=== PATIENT | female | born 1950 | race African-American/Black ===

== ENCOUNTER 2016-05-18 10:34 | Emergency (ER) | payer OTHER ==
[~2016-05-18] VITALS: Ht 167.6 cm; Wt 80.0 kg
[~2016-05-18 10:34] MED LIST: AMIT150T PO; CYCL-36 PO; LEVO.075 PO; METO10TA PO; OXYC5 PO; PREM0.622 PO; PROT40TA PO
[2016-05-18 10:37] VITALS: BP 134/71; PULSE 116; RESP 15; TEMP 98.2; O2SAT 99
[2016-05-18] MEDS ORDERED: SODIUM CHLOR 0.9% 1000 ML INJ 1,000 ML IV SCH (10:43)
[2016-05-18] MEDS ORDERED: SODIUM CHLORIDE 0.9% FLUSH 5 ML FLUSH IVF PRN (10:45)
[2016-05-18] MEDS ORDERED: KETOROLAC TROMETHAMINE 30 MG/ML (IVP) VIAL IV PUSH ONE (10:45)
[2016-05-18] MEDS ORDERED: METOCLOPRAMIDE HCL 10 MG/2 ML VIAL IV PUSH ONE (10:45)
[2016-05-18 10:47] VITALS: O2SAT 98
--- NOTE | 2016-05-18 10:47 | PD ---
HPI Chief Complaint: Flank/Kidney Pain Time Seen by Provider: 10:43 Travel History International Travel<30 days: No Contact w/Intl Traveler<30days: No Traveled to known affect area: No History of Present Illness HPI 65-year-old female with history of migraine headaches here for evaluation of bilateral flank pain, headache, and chills. Symptoms started yesterday. Headache is retro-orbital and feels like the beginning of a migraine, is moderate. Bilateral flank pain is sharp/cramping. The patient has noted that her Urine is darker than usual. She has had subjective fevers. No nausea or vomiting. No diarrhea. PFSH Past Medical History Depression: Yes Diabetes: Yes (BORDERLINE) Diminished Hearing: No Diverticulitis: Yes GERD: Yes Hypertension: Yes Migraines: Yes Thyroid Disease: Yes (HYPOTHYROIDISM) Ulcer: Yes PNEUMOCCOCAL Vaccine (Year): 2 ?: Not Menopausal: Yes Past Surgical History Cholecystectomy: Yes (7 YRS AGO) Hysterectomy: Yes Tonsillectomy: Yes ( CHILD) Other Surgery: No Social History Alcohol Use: No Tobacco Use: No (QUIT 1984) Substance Use: No Allergies-Medications (Allergen,Severity, Reaction): Coded Allergies: Codeine (Verified Allergy, Severe, ITCHING AND BURNING N/V, 05/18/16) Morphine (Verified Allergy, Severe, NAUSEA/VOMITING, 05/18/16) Lisinopril (Verified Adverse Reaction, Severe, Cough, 05/18/16) Reported Meds & Prescriptions Reported Meds & Active Scripts Active Reported Oxycodone-Acetaminophen 10-325 mg Tab 1 Tab PO Q8HR Triamcinolone Topical (Triamcinolone Acetonide) 0.1% Cream 1 Applic TOPICAL BID Pantoprazole (Pantoprazole Sodium) 40 Mg Tab 40 Mg PO DAILY Losartan (Losartan Potassium) 50 Mg Tab 50 Mg PO DAILY Levothyroxine (Levothyroxine Sodium) 88 Mcg Tab 88 Mcg PO DAILY Isopto Tears Opth Drops (Hypromellose) 0.5% Drops 1 Drop EACH EYE Q6H PRN Premarin (Estrogens Conjugated) 0.625 Mg Tab 0.625 Mg PO DAILY Restasis Opth Drops (Cyclosporine Opth Drops) 0.05% Emul 1 Drop EACH EYE BID Amitriptyline (Amitriptyline HCl) 150 Mg Tab 150 Mg PO HS Review of Systems Except as stated in HPI: all other systems reviewed are Neg Physical Exam Narrative GENERAL: Well-developed, well-nourished, awake, alert, no acute distress. SKIN: Warm and dry. No rash. HEAD: Atraumatic. Normocephalic. EYES: Pupils equal and round. No scleral icterus. No injection or drainage. ENT: Mucous membranes pink and moist. NECK: Trachea midline. No JVD. No nuchal rigidity. CARDIOVASCULAR: Regular rate and rhythm. RESPIRATORY: No accessory muscle use. Clear to auscultation. Breath sounds equal bilaterally. GASTROINTESTINAL: Abdomen soft, non-tender, nondistended. MUSCULOSKELETAL: No obvious deformities. No clubbing. No cyanosis. No edema. Bilateral CVA tenderness. No midline vertebral step-off or tenderness. NEUROLOGICAL: Awake and alert. No obvious cranial nerve deficits. Motor grossly within normal limits. Normal speech. PSYCHIATRIC: Appropriate mood and affect; insight and judgment normal. Data Data Last Documented VS Vital Signs Date Time Temp Pulse Resp B/P Pulse Ox O2 Delivery O2 Flow Rate FiO2 05/18/16 11:04 105 16 135/67 100 05/18/16 10:47 Room Air 05/18/16 10:37 98.2 Orders Complete Blood Count With Diff (05/18/16 10:43) Comprehensive Metabolic Panel (05/18/16 10:43) Prothrombin Time / Inr (Pt) (05/18/16 10:43) Act Partial Throm Time (Ptt) (05/18/16 10:43) Urinalysis - C+S If Indicated (05/18/16 10:43) Ct Abd/Pel W/O Iv Contrast (05/18/16 10:43) Iv Access Insert/Monitor (05/18/16 10:43) Ecg Monitoring (05/18/16 10:43) Oximetry (05/18/16 10:43) Sodium Chlor 0.9% 1000 Ml Inj (Ns 1000 M (05/18/16 10:43) Sodium Chloride 0.9% Flush (Ns Flush) (05/18/16 10:45) Metoclopramide Inj (Reglan Inj) (05/18/16 10:45) Ketorolac Inj (Toradol Inj) (05/18/16 10:45) Labs Laboratory Tests Test 05/18/16 05/18/16 10:50 10:54 White Blood Count 9.8 TH/MM3 Red Blood Count 4.33 MIL/MM3 Hemoglobin 13.1 GM/DL Hematocrit 38.1 % Mean Corpuscular Volume 88.1 FL Mean Corpuscular Hemoglobin 30.3 PG Mean Corpuscular Hemoglobin 34.4 % Concent Red Cell Distribution Width 13.1 % Platelet Count 288 TH/MM3 Mean Platelet Volume 8.9 FL Neutrophils (%) (Auto) 74.0 % Lymphocytes (%) (Auto) 16.0 % Monocytes (%) (Auto) 9.0 % Eosinophils (%) (Auto) 0.2 % Basophils (%) (Auto) 0.8 % Neutrophils # (Auto) 7.2 TH/MM3 Lymphocytes # (Auto) 1.6 TH/MM3 Monocytes # (Auto) 0.9 TH/MM3 Eosinophils # (Auto) 0.0 TH/MM3 Basophils # (Auto) 0.1 TH/MM3 CBC Comment DIFF FINAL Differential Comment Prothrombin Time 11.1 SEC Prothromb Time International 1.0 RATIO Ratio Activated Partial 28.5 SEC Thromboplast Time Sodium Level 134 MEQ/L Potassium Level 3.6 MEQ/L Chloride Level 100 MEQ/L Carbon Dioxide Level 28.0 MEQ/L Anion Gap 6 MEQ/L Blood Urea Nitrogen 12 MG/DL Creatinine 1.24 MG/DL Estimat Glomerular Filtration 53 ML/MIN Rate Random Glucose 134 MG/DL Calcium Level 8.9 MG/DL Total Bilirubin 0.4 MG/DL Aspartate Amino Transf 20 U/L (AST/SGOT) Alanine Aminotransferase 25 U/L (ALT/SGPT) Alkaline Phosphatase 87 U/L Total Protein 8.2 GM/DL Albumin 3.8 GM/DL Urine Color YELLOW Urine Turbidity CLEAR Urine pH 7.0 Urine Specific [place] 1.012 Urine Protein NEG mg/dL Urine Glucose (UA) NEG mg/dL Urine Ketones NEG mg/dL Urine Occult Blood NEG Urine Nitrite NEG Urine Bilirubin NEG Urine Urobilinogen LESS THAN 2.0 MG/DL Urine Leukocyte Esterase NEG Urine RBC LESS THAN 1 /hpf Urine WBC 1 /hpf Urine Squamous Epithelial 2 /hpf Cells Urine Mucus FEW /lpf Microscopic Urinalysis Comment CULT NOT INDICATED MDM Medical Decision Making Medical Screen Exam Complete: Yes Emergency Medical Condition: Yes Medical Record Reviewed: Yes Differential Diagnosis Migraine headache, cluster headache, tension headache, SAH/meningitis/ encephalitis unlikely, UTI, pyelonephritis, nephrolithiasis Narrative Course Initial vital signs show heart rate 116, blood pressure 134/71, pulse ox 99% on room air, oral temp of 98.2F. Heart rate improved to 97 after a liter of IV fluids. CBC is unremarkable. CMP is remarkable for creatinine 1.4, GFR 53, which is slightly worse than her baseline, otherwise unremarkable. UA is unremarkable, no hematuria, not suggestive of UTI. CT abdomen pelvis: CONCLUSION: Several tiny pelvic calcifications bilaterally. It is unclear if these may represent small distal ureteral stones as they could also be intimal calcifications and adjacent iliac blood vessels. Otherwise no acute CT findings in the abdomen or pelvis. Patient was made aware of all findings. She was given IV Toradol and IV Reglan with improvement in headache and bilateral flank pain. The patient is still complaining of some bilateral flank pain. She has no red flags for low back pain. She feels well enough to be discharged home. Her headache has improved and feels like the beginning of a migraine. There is no nuchal rigidity. I do not believe she has meningitis, encephalitis, or a subarachnoid hemorrhage. I believe she is stable for discharge home with outpatient follow-up with her primary care physician this week. She takes oxycodone for chronic back pain. She was informed on when to return to the emergency department. She verbalizes understanding and agreement with plan. Diagnosis Primary Impression: Cephalgia Qualified Code: R51 - Acute nonintractable headache, unspecified headache type Additional Impression: Flank pain Referrals: Primary Care Physician 3 days Additional Instructions: Follow-up with your primary care physician this week. Stay hydrated with plenty of fluids. Return to the emergency department for worsening symptoms or any other concerns. Disposition: DISCHARGE HOME Condition: Stable Daniel Reyes MD May 18, 2016 10:46
[2016-05-18] MEDS ORDERED: LOSA50TA PO (10:56)
[2016-05-18] MEDS ORDERED: LEVO88TA2 PO (10:56)
[2016-05-18] MEDS ORDERED: ESTR.625 PO (10:56)
[2016-05-18] MEDS ORDERED: OXYC1TAB36 PO (10:56)
[2016-05-18] MEDS ORDERED: REST0.05 EACH EYE (10:56)
[2016-05-18] MEDS ORDERED: AMIT150T PO (10:56)
[2016-05-18] MEDS ORDERED: ISOP0.5S EACH EYE (10:56)
[2016-05-18] MEDS ORDERED: TRIA.1%T TOPICAL (10:56)
[2016-05-18] MEDS ORDERED: PANT40TA3 PO (10:56)
[2016-05-18 11:04] VITALS: BP 135/67; PULSE 105; RESP 16; O2SAT 100
[2016-05-18 11:07] LABS: AUTOMATED NEUTROPHIL # 7.2 TH/MM3 (1.8-7.7); BASOPHIL # 0.1 TH/MM3 (0-0.2); BASOPHIL % 0.8 % (0.0-2.0); EOSINOPHIL % 0.2 % (0.0-4.0); HEMATOCRIT 38.1 % (35.0-46.0); HEMO FLAGS DIFF FINAL; LYMPHOCYTE # 1.6 TH/MM3 (1.0-4.8); MEAN CELL VOLUME 88.1 FL (80.0-100.0); MEAN CORPUSCULAR HEMOGLOBIN 30.3 PG (27.0-34.0); MEAN CORPUSCULAR HGB CONC 34.4 % (32.0-36.0); PLATELET COUNT 288 TH/MM3 (150-450); RED BLOOD COUNT 4.33 MIL/MM3 (4.00-5.30); RED CELL DISTRIBUTION WIDTH 13.1 % (11.6-17.2); WHITE BLOOD COUNT 9.8 TH/MM3 (4.0-11.0)
[2016-05-18 11:12] LABS: APTT (PATIENT) 28.5 SEC (24.3-30.1); PROTHROMBIN TIME - PATIENT 11.1 SEC (9.8-11.6)
[2016-05-18 11:17] LABS: ALT (GPT) 25 U/L (10-53); ANION GAP 6 MEQ/L (5-15); AST (GOT) 20 U/L (15-37); BLOOD UREA NITROGEN 12 MG/DL (7-18); CHLORIDE 100 MEQ/L (98-107); GLOMERULAR FILTRATION RATE 53 ML/MIN (>89); POTASSIUM 3.6 MEQ/L (3.5-5.1); SODIUM (NA) 134 MEQ/L (136-145)
[2016-05-18 11:19] LABS: ALKALINE PHOSPHATASE 87 U/L (45-117); TOTAL BILIRUBIN ADULT 0.4 MG/DL (0.2-1.0)
[2016-05-18 11:25] LABS: BLOOD, URINE NEG (NEG); COMMENT (UR) CULT NOT INDICATED; CULTURE IF INDICATED CULT NOT INDICATED; GLUCOSE,URINE NEG (NEG); KETONE, URINE NEG (NEG); MUCUS URINE FEW /lpf (OCC); NITRITE,URINE NEG (NEG); SQUAMOUS EPITHELIAL CELL URINE 2 /hpf (0-5); URINE COLOR YELLOW (YELLW/STRAW)
--- NOTE | 2016-05-18 11:56 | RADRPT ---
EXAM DATE/TIME: 05/18/2016 11:20 [facility] COMPARISON: No previous studies available for comparison. INDICATIONS : Bilateral flank pain with chills. ORAL CONTRAST: No oral contrast ingested. RADIATION DOSE: 8.50 CTDIvol (mGy) MEDICAL HISTORY : Hypertension. Diabetes mellitus type 2. SURGICAL HISTORY : Cholecystectomy. Hysterectomy. ENCOUNTER: Initial ACUITY: 1 day PAIN SCALE: 6/10 LOCATION: Bilateral flank TECHNIQUE: Volumetric scanning of the abdomen and pelvis was performed. Using automated exposure control and ad justment of the mA and/or kV according to patient size, radiation dose was kept as low as reasonably achievable to obtain optimal diagnostic quality images. FINDINGS: LOWER LUNGS: Slight scarring in the left lung base. Small fat-containing posterior left diaphragmatic hernia. LIVER: Homogeneous density without lesion. There is no dilation of the biliary tree. Gallbladder surgically absent.. SPLEEN: Normal size without lesion. PANCREAS: Within normal limits. KIDNEYS: There is mild distention of the renal pelves bilaterally. The ureters are normal in caliber. There ar e tiny calcific densities noted over the pelvis bilaterally which are in close proximity to the dista l ureters, however they could also be vascular calcifications associated with the adjacent iliac vess els. None of these are larger than a couple of millimeters in size. ADRENAL GLANDS: Within normal limits. VASCULAR: There is no aortic aneurysm. BOWEL/MESENTERY: The stomach, small bowel, and colon demonstrate no acute abnormality. There is no free intraperitone al air or fluid. ABDOMINAL WALL: Within normal limits. RETROPERITONEUM: There is no lymphadenopathy. BLADDER: No wall thickening or mass. REPRODUCTIVE: Uterus surgically absent. No evidence of pelvic mass or free fluid. INGUINAL: There is no lymphadenopathy or hernia. MUSCULOSKELETAL: Within normal limits for patient age. CONCLUSION: Several tiny pelvic calcifications bilaterally. It is unclear if these may represent small distal ure teral stones as they could also be intimal calcifications and adjacent iliac blood vessels. Otherwise no acute CT findings in the abdomen or pelvis. Marcelino Hearn MD on May 18, 2016 at 11:46 Board Certified Radiologist. This report was verified electronically.
[2016-05-18 12:13] VITALS: PULSE 97
== END 2016-05-18 12:36 | disposition home or self-care (01) ==
LOC: NEPA 10:34
DX: R10.9 Unspecified abdominal pain (principal); R51 Headache; E11.9 Type 2 diabetes mellitus without complications; K21.9 Gastro-esophageal reflux disease without esophagitis; I10 Essential (primary) hypertension; E03.9 Hypothyroidism, unspecified; Z87.891 Personal history of nicotine dependence
CPT/HCPCS: 74176; 80053; 81001; 85025; 85610; 85730; 96361; 96374; 96375; 99284; J1885; J2765; J7030

== ENCOUNTER 2016-12-07 07:11 | Emergency (ER) | payer OTHER ==
[~2016-12-07] VITALS: Ht 167.6 cm; Wt 80.0 kg
[~2016-12-07 07:11] MED LIST changes: -CYCL-36 PO; +ESTR.625 PO; +ISOP0.5S EACH EYE; -LEVO.075 PO; +LEVO88TA2 PO; +LOSA50TA PO; -METO10TA PO; +OXYC1TAB36 PO; -OXYC5 PO; +PANT40TA3 PO; -PREM0.622 PO; -PROT40TA PO; +REST0.05 EACH EYE; +TRIA.1%T TOPICAL
[2016-12-07 07:15] VITALS: BP 185/80; PULSE 78; RESP 20; TEMP 97.7; O2SAT 99
[2016-12-07] MEDS ORDERED: SODIUM CHLOR 0.9% 1000 ML INJ 1,000 ML IV ONE (07:29)
[2016-12-07] MEDS ORDERED: ACETAMINOPHEN 325 MG TAB PO ONE (07:30)
[2016-12-07] MEDS ORDERED: SODIUM CHLORIDE 0.9% FLUSH 10 ML FLUSH IVF PRN (07:30)
[2016-12-07] MEDS ORDERED: PROCHLORPERAZINE INJ 10 MG/2 ML VIAL IVP ONE (07:30)
[2016-12-07] MEDS ORDERED: diphenhydrAMINE HCL 50 MG/ML VIAL IVP ONE (07:30)
[2016-12-07 07:34] VITALS: O2SAT 100
[2016-12-07 07:35] VITALS: BP 181/92; PULSE 74; RESP 19; O2SAT 100
[2016-12-07] MEDS ORDERED: PROM25TA10 PO (07:35)
--- NOTE | 2016-12-07 07:36 | PD ---
HPI Chief Complaint: Headache Time Seen by Provider: 07:29 Travel History International Travel<30 days: No Contact w/Intl Traveler<30days: No Traveled to known affect area: No History of Present Illness HPI the patient is a 66 years old S the ER complaining of frontal headache for about 2 hours. The headache started as she was getting up in the morning to take a shower. She reports a history of migraines however has not had one as severe for about 3 years. No neck stiffness or fever. Characteristics of today 's headache similar to prior although today's is more severe. Onset gradual. Timing constant. notes long travel to [place] and back couple with stress from [place] is likely contributory. PFSH Past Medical History Depression: Yes Diabetes: Yes Patient Takes Glucophage: No Diminished Hearing: No Diverticulitis: Yes GERD: Yes Hypertension: Yes Migraines: Yes Thyroid Disease: Yes (HYPO) Ulcer: Yes Tetanus Vaccination: > 5 Years Influenza Vaccination: Yes PNEUMOCCOCAL Vaccine (Year): 2 ?: Not Menopausal: Yes Past Surgical History Cholecystectomy: Yes Hysterectomy: Yes Tonsillectomy: Yes Other Surgery: No Social History Alcohol Use: No Tobacco Use: No (QUIT 1984) Substance Use: No Allergies-Medications (Allergen,Severity, Reaction): Coded Allergies: codeine (Unverified Allergy, Severe, ITCHING AND BURNING N/V, 12/07/16) morphine (Unverified Allergy, Severe, NAUSEA/VOMITING, 12/07/16) lisinopril (Unverified Adverse Reaction, Severe, Cough, 12/07/16) Reported Meds & Prescriptions Reported Meds & Active Scripts Active Phenergan (Promethazine HCl) 25 Mg Tablet 25 Mg PO Q6H PRN Reported Oxycodone-Acetaminophen 10-325 mg Tab 1 Tab PO Q8HR Triamcinolone Topical (Triamcinolone Acetonide) 0.1% Cream 1 Applic TOPICAL BID Pantoprazole (Pantoprazole Sodium) 40 Mg Tab 40 Mg PO DAILY Losartan (Losartan Potassium) 50 Mg Tab 50 Mg PO DAILY Levothyroxine (Levothyroxine Sodium) 88 Mcg Tab 88 Mcg PO DAILY Isopto Tears Opth Drops (Hypromellose) 0.5% Drops 1 Drop EACH EYE Q6H PRN Premarin (Estrogens Conjugated) 0.625 Mg Tab 0.625 Mg PO DAILY Restasis Opth 0.05% (Cyclosporine Opth 0.05%) 0.05% Emul 1 Drop EACH EYE BID Amitriptyline (Amitriptyline HCl) 150 Mg Tab 150 Mg PO HS Review of Systems Except as stated in HPI: all other systems reviewed are Neg General / Constitutional: No: Fever Gastrointestinal: No: Nausea, Vomiting Physical Exam Narrative GENERAL: 66-year-old female well-nourished well-developed moderate distress secondary to pain SKIN: Warm and dry. HEAD: Atraumatic. Normocephalic. EYES: Pupils equal and round. No scleral icterus. No injection or drainage. ENT: No nasal bleeding or discharge. Mucous membranes pink and moist. NECK: Trachea midline. No JVD. Supple neck. Range of motion normal. CARDIOVASCULAR: Regular rate and rhythm. RESPIRATORY: No accessory muscle use. Clear to auscultation. Breath sounds equal bilaterally. GASTROINTESTINAL: Abdomen soft, non-tender, nondistended. Hepatic and splenic margins not palpable. MUSCULOSKELETAL: Extremities without clubbing, cyanosis, or edema. No obvious deformities. NEUROLOGICAL: Awake and alert. No obvious cranial nerve deficits. Motor grossly within normal limits. Five out of 5 muscle strength in the arms and legs. Normal speech. PSYCHIATRIC: Appropriate mood and affect; insight and judgment normal. Data Data Last Documented VS Vital Signs Date Time Temp Pulse Resp B/P (MAP) Pulse Ox O2 Delivery O2 Flow Rate FiO2 12/07/16 07:35 74 19 181/92 (121) 100 Room Air 12/07/16 07:15 97.7 Vital signs reviewed Orders Orders Iv Access Insert/Monitor (12/07/16 07:29) Oximetry (12/07/16 07:29) Sodium Chloride 0.9% Flush (Ns Flush) (12/07/16 07:30) Acetaminophen (Tylenol) (12/07/16 07:30) Prochlorperazine Inj (Compazine Inj) (12/07/16 07:30) Diphenhydramine Inj (Benadryl Inj) (12/07/16 07:30) Sodium Chlor 0.9% 1000 Ml Inj (Ns 1000 M (12/07/16 07:29) MDM Medical Decision Making Medical Screen Exam Complete: Yes Emergency Medical Condition: Yes Medical Record Reviewed: Yes (prior visits for migraines) Differential Diagnosis Migraine, sinusitis, stroke, aneurysm, cavernous sinus thrombosis, venous sinus thrombosis Narrative Course Patient received Compazine and Benadryl IV fluids and Tylenol. The power reassessment, 8:04 AM, patient reports resolution of pain and states she is ready to go home. Impression: Migraine with appropriate response abortive therapy. Diagnosis Primary Impression: Cephalgia Qualified Codes: R51 - Headache Referrals: Primary Care Physician call for appointment Additional Instructions: You have a choice when it comes to health care, and we are glad that you chose [facility]. Hopefully, we have met your expectations on today's visit. You are welcome to return to [facility] at any time, as we are committed to meeting the health care needs of our community. Med/Other Pt SpecificInfo: Prescription(s) given Scripts Promethazine (Phenergan) 25 Mg Tablet 25 MG PO Q6H Y for NAUSEA OR VOMITING, #12 TAB 0 Refills Prov: Jake London MD 12/07/16 Disposition: 01 DISCHARGE HOME Condition: Stable Jake London MD Dec 07, 2016 07:36
[2016-12-07 08:33] VITALS: BP 138/73
== END 2016-12-07 08:36 | disposition home or self-care (01) ==
LOC: NEPC 07:11
DX: R51 Headache (principal); F32.9 Major depressive disorder, single episode, unspecified; E11.9 Type 2 diabetes mellitus without complications; K57.92 Diverticulitis of intestine, part unspecified, without perforation or abscess without bleeding; K21.9 Gastro-esophageal reflux disease without esophagitis; I10 Essential (primary) hypertension; E03.9 Hypothyroidism, unspecified; Z79.899 Other long term (current) drug therapy; Z88.5 Allergy status to narcotic agent
CPT/HCPCS: 96361; 96374; 96375; 99284; J0780; J1200; J7030